=== PATIENT | male | born 2005 | race African-American/Black ===

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

== ENCOUNTER 2024-02-13 18:06 | Emergency (ER) | payer BC, OTHER, SELFPAY ==
[2024-02-13 18:25] VITALS: BP 135/69; PULSE 68; RESP 18; TEMP 37.6; O2SAT 100
--- NOTE | 2024-02-13 18:53 | ED_ITS ---
HPI - Skin/Abscess/Foreign Bdy General Chief complaint: Skin/Abscess/Foreign Body <Mernaharleen Flores APRN - Last Filed: 02/19/24 12:44> Stated complaint: Right Underarm Bump <Mernaharleen Flores APRN - Last Filed: 02/19/24 12:44> Time Seen by Provider: 02/13/24 18:53 <Merna Flores APRN - Last Filed: 02/19/24 12:44> Source: patient, RN notes reviewed and old records reviewed <Mernaharleen Flores APRN - Last Filed: 02/19/24 12:44> Mode of arrival: ambulatory <Mernaharleen Flores APRN - Last Filed: 02/19/24 12:44> Limitations: no limitations <Mernaharleen Flores APRN - Last Filed: 02/19/24 12:44> History of Present Illness HPI narrative: patient presents with complaints of painful pustule to the right axilla. He reports that he has had similar symptoms in the past, but says this is much worse and is lasting much longer. He reports that it began as a small pustule about a week ago, but has gotten significantly bigger. He has been picking at the site. He reports that he knows that this made it worse. He reports some scant drainage. Denies any injury or trauma. Voices no other concerns or complaints at this time. He denies any fever, chills, sweats <Merna Flores APRN - Last Filed: 02/19/24 12:44> Related Data Allergies/Adverse reactions: Allergies Allergy/AdvReac Type Severity Reaction Status Date / Time No Known Allergies Allergy Verified 02/13/24 18:09 <Mernaharleen Flores APRN - Last Filed: 02/19/24 12:44> Review of Systems 2 Review of Systems: All systems reviewed & are unremarkable except as noted in HPI and below <Merna Flores APRN - Last Filed: 02/19/24 12:44> Constitutional: Constitutional: Reports no additional constitutional complaints <Merna Flores APRN - Last Filed: 02/19/24 12:44> ENT: Reports system reviewed and no additional complaints, except as documented <Merna Basilio Flores APRN - Last Filed: 02/19/24 12:44> Cardiovascular: Cardiovascular: Reports no additional cardiovascular complaints <Mernaharleen Flores APRN - Last Filed: 02/19/24 12:44> Respiratory: Respiratory: Reports no additional respiratory complaints < Mernaharleen Flores APRN - Last Filed: 02/19/24 12:44> Gastrointestinal: Gastrointestinal: Reports no additional gastrointestinal complaints <Mernaharleen Flores APRN - Last Filed: 02/19/24 12:44> Integumentary/Breasts: Skin/Breast: Reports system reviewed and no additional complaints, except as docu and Reports as per HPI <Merna Flores APRN - Last Filed: 02/19/24 12:44> PMF Family History Family History: Family History Other Family history non-contributory <Merna Flores APRN - Last Filed: 02/19/24 12:44> Comments At the time of my signature, I reviewed and agree with the nursing past medical, surgical, social, and family history. There is no relevant family history pertinent to the patient complaint. <Mernaharleen Flores APRN - Last Filed: 02/19/24 12:44> Exam 2 Const: General: cooperative, no acute distress, alert and awake <Merna Flores APRN - Last Filed: 02/19/24 12:44> Orientation/consciousness: oriented to person, oriented to place and oriented to time <Mernaharleen Flores APRN - Last Filed: 02/19/24 12:44> HENMT: Head: normal to inspection <Mernaharleen Flores APRN - Last Filed: 02/19/24 12:44> Resp: Effort & Inspection: normal respiratory effort and able to speak in complete sentences <Mernaharleen Flores APRN - Last Filed: 02/19/24 12:44> Auscultation: clear to auscultation bilaterally, no crackles, no rales, no rhonchi and no wheezes <Merna Richmond Alcdiana ALANNA Last Filed: 02/19/24 12:44> Cardio: Palpation: normal PMI <Merna Richmond AlcdianaALANNA Last Filed: 02/19/24 12:44> Rate: regular rate <Merna Richmond AlcfrankiALANNA mcintyre Last Filed: 02/19/24 12:44> Rhythm: regular rhythm <Merna Richmond AlcdianaALANNA Last Filed: 02/19/24 12:44> Heart sounds: S1 normal heart sound present and S2 normal heart sound present <Merna Richmond AlcfrankiALANNA mcintyre Last Filed: 02/19/24 12:44> Skin: Full body images: 1. 2.5 cm diameter abscess with small central opening <Merna Richmodn AlcdianaALANNA Last Filed: 02/19/24 12:44> Neuro: General: oriented to person, oriented to place and oriented to time <Merna Richmond AlcdianaALANNA Last Filed: 02/19/24 12:44> Cranial nerves: Yes CN's II-XII intact bilaterally <Merna Richmond AlcdianaALANNA Last Filed: 02/19/24 12:44> Psych: Appearance: grossly normal <Merna Richmond AlcdianaALANNA Last Filed: 02/19/24 12:44> Thought process: Normal thought process present <Merna Richmond AlcdianaALANNA Last Filed: 02/19/24 12:44> Insight: Good insight present (Psych) <Merna SoFreeman Flores ALANNA Last Filed: 02/19/24 12:44> Judgement: Good judgement present (Psych) <Merna Richmond AlcdianaALANNA Last Filed: 02/19/24 12:44> Course Course Level of Care: Express Care Visit <Merna Richmond MarkALANNA Last Filed: 02/19/24 12:44> Vital Signs Vital signs: Vital Signs Temperature 99.6 F 02/13/24 18:25 Pulse Rate 68 02/13/24 18:25 Respiratory Rate 18 02/13/24 18:25 Blood Pressure 135/69 02/13/24 18:25 Pulse Oximetry 100 02/13/24 18:25 Oxygen Delivery Room Air 02/13/24 18:25 Temperature 99.6 F 02/13/24 18:25 Pulse Rate 68 02/13/24 18:25 Respiratory Rate 18 02/13/24 18:25 Blood Pressure 135/69 02/13/24 18:25 Pulse Oximetry 100 02/13/24 18:25 Oxygen Delivery Room Air 02/13/24 18:25 Reviewed <Merna Flores APRN - Last Filed: 02/19/24 12:44> Vital Signs Temperature 99.6 F 02/13/24 18:25 Pulse Rate 68 02/13/24 18:25 Respiratory Rate 18 02/13/24 18:25 Blood Pressure 135/69 02/13/24 18:25 Pulse Oximetry 100 02/13/24 18:25 Oxygen Delivery Room Air 02/13/24 18:25 Temperature 99.6 F 02/13/24 18:25 Pulse Rate 68 02/13/24 18:25 Respiratory Rate 18 02/13/24 18:25 Blood Pressure 135/69 02/13/24 18:25 Pulse Oximetry 100 02/13/24 18:25 Oxygen Delivery Room Air 02/13/24 18:25 <Angela Alvarado BARREL CHARRER HELPER - Last Filed: 02/17/24 09:01> Procedures Abscess I/D upper extremity: Date of Incision: 02/13/24 <Menra Flores APRN - Last Filed: 02/19/24 12:44> Time of Incision: 19:00 <Merna Flores APRN - Last Filed: 02/19/24 12:44> Local Anesthetic: lidocaine 1% <Merna Flores APRN - Last Filed: 02/19/24 12:44> Amount of anesthesia used (mL): 8 <Merna Flores APRN - Last Filed: 02/19/24 12:44> Technique: incised with #11 blade <Merna Flores APRN - Last Filed: 02/19/24 12:44> Amount of fluid expressed (mL): 10 <Merna Flores APRN - Last Filed: 02/19/24 12:44> Irrigation: Yes <Merna Flores APRN - Last Filed: 02/19/24 12:44> Packing used?: none <Merna Flores APRN - Last Filed: 02/19/24 12:44> I&D Results: Pus and Blood <Merna Flores APRN - Last Filed: 02/19/24 12:44> Complications: pain <Merna Flores APRN - Last Filed: 02/19/24 12:44> Abcess I&D Additional Comments: Right axilla, culture obtained <Merna Flores APRN - Last Filed: 02/19/24 12:44> MDM - Skin/Abscess/Foreign Bdy MDM Narrative Medical decision making narrative: patient with abscess to right axilla, likely secondary to hidradenitis. Patient advised to follow with primary care provider. Emergency department for new or worse symptoms. Tolerated incision and drainage without difficulty. Discharge instructions reviewed with patient, as well as provided in writing per nursing staff. The instructions also include specific and strict return/GO TO THE ER as well as f/u information. All questions have been answered, and the patient deny any further questions with discharge and discharge plan. Some parts of this dictation were generated by voice recognition software and may contain typographical and/or grammatical inaccuracies. <Merna Flores APRN - Last Filed: 02/19/24 12:44> Differential Diagnosis Differential diagnosis: Likely abscess of skin or subcutaneous tissue, cellulitis and contact dermatitis <Merna Flores APRN - Last Filed: 02/19/24 12:44> Medical Records Attestation: I reviewed the patient's medical records. <Merna Flores APRN - Last Filed: 02/19/24 12:44> Lab Data Attestation: I reviewed the patient's lab results. <Merna Flores APRN - Last Filed: 02/19/24 12:44> Labs: Lab called about results. Positive for MRSA. Sent sensitivity report. Patient is on doxy which is susceptible. <Angela Alvarado APRN - Last Filed: 02/17/24 09:01> Discharge Plan Discharge Clinical Impression: Abscess <Merna Flores APRN - Last Filed: 02/19/24 12:44> Patient Disposition: Home, Self-Care <Merna Flores APRN - Last Filed: 02/19/24 12:44> Condition: Stable <Merna Flores APRN - Last Filed: 02/19/24 12:44> Instructions: Antibiotic Form, Abscess (ED) <Merna Flores APRN - Last Filed: 02/19/24 12:44> Additional Instructions: Take medication as prescribed. Follow with primary care provider. Emergency department for new or worse symptoms <Merna Flores APRN - Last Filed: 02/19/24 12:44> Patient Language: Polish <Merna Flores APRN - Last Filed: 02/19/24 12:44> Prescriptions: New doxycycline hyclate 100 mg tablet 100 mg PO BID Qty: 20 0RF naproxen [Naprosyn] 500 mg tablet 500 mg PO BID PRN (Reason: pain) Qty: 30 0RF <Merna Flores APRN - Last Filed: 02/19/24 12:44> Follow-up/Referrals: PHYSICIAN,ANNEALING OVEN OPERATOR [Primary Care Provider] - <Merna Flores APRN - Last Filed: 02/19/24 12:44> Stand Alone Forms: Work/School Release IP <Merna Flores APRN - Last Filed: 02/19/24 12:44> Time of Disposition: 19:22 <Merna Flores APRN - Last Filed: 02/19/24 12:44> 19:22 <Angela Alvarado APRN - Last Filed: 02/17/24 09:01>
[2024-02-13] MEDS: LIDOCAINE 1% LOCAL INJ 2 ML AMPUL 8 ML INFILTRATE (18:59)
== END 2024-02-13 19:25 | disposition home or self-care (01) ==
PROVIDERS: Emergency Provider Nurse Practitioner Family
DX: L02.411 Cutaneous abscess of right axilla (principal); B95.62 Methicillin resistant Staphylococcus aureus infection as the cause of diseases classified elsewhere
CPT/HCPCS: 10060; 87070; 87075; 87181; 87205; 99213; G0463; J2003

== ENCOUNTER 2025-02-11 16:10 | Emergency (ER) | payer BC, SELFPAY ==
--- NOTE | ~2025-02-11 | XR_ITS ---
EXAMINATION: XR shoulder LT min 2V, 02/11/2025 16:20 [facility]Y [facility] HISTORY: possible dislocation COMPARISON: No comparisons available. Findings: No acute fracture or malalignment. No significant degenerative changes. Soft tissues unremarkable. Impression: No acute fracture or malalignment. Reviewed, dictated and finalized at location P. WINDER Impression: No acute fracture or malalignment.
[2025-02-11 16:15] VITALS: BP 132/61; PULSE 65; RESP 18; TEMP 37; O2SAT 100
--- NOTE | 2025-02-11 18:12 | ED.UPPEXIN ---
HPI - Extremity Injury (Upper) General Chief Complaint: Extremity Injury, Upper Stated Complaint: I dislocated my shoulder' Time Seen by Provider: 02/11/25 17:33 Source: patient Mode of arrival: ambulatory Limitations: no limitations History of Present Illness HPI narrative: Patient is a 19-year-old male who presents the ED with report of left shoulder injury. Patient reports he was boxing 2 days ago when he felt his left shoulder dislocate. He notes history of multiple previous dislocations of his left shoulder. States he typically reduces this himself. States he is able to move his arm currently, but has certain positions where it will hurt. States it feels very unstable. Reported he had an episode of numbness falling down a few nights ago, but this has resolved. Denies any other injuries. Related Data Allergies Allergy/AdvReac Type Severity Reaction Status Date / Time No Known Allergies Allergy Verified 02/13/24 18:09 Review of Systems Review of Systems: All systems reviewed & are unremarkable except as noted in HPI. All systems reviewed & are unremarkable except as noted in HPI and below PMFSH Family History Family History Other Family history non-contributory Exam Narrative: GENERAL: Well appearing, well-nourished, non-toxic, in no acute distress. HEAD: Normocephalic, atraumatic. RESPIRATORY: Airway patent, respirations nonlabored. Clear to auscultation bilaterally, no rales, rhonchi, wheezing. CARDIOVASCULAR: Regular rate and rhythm without murmurs, rubs, or gallops. Radial pulses strong and easily palpable MUSCULOSKELETAL: Moves all extremities. No gross deformities. Slight limitation of flexion and abduction past 90? due to pain. Mild tenderness palpation over left posterior shoulder joint. Sensation intact throughout left lower extremity. Equal airplane mechanic apprentice strength bilaterally. SKIN: Warm, dry, normal color. NEURO: A&O X3. Speech clear. Cranial nerves II-XII grossly intact. Steady gait. No ataxic movements. PSYCHIATRIC: Appropriate mood and affect. Normal interaction. Course Vital Signs Vital signs: Vital Signs Temperature 98.6 F 02/11/25 16:15 Pulse Rate 65 02/11/25 16:15 Respiratory Rate 18 02/11/25 16:15 Blood Pressure 132/61 02/11/25 16:15 Pulse Oximetry 100 12/11/25 16:15 Oxygen Delivery Room Air 02/11/25 16:15 Temperature 98.6 F 02/11/25 16:15 Pulse Rate 65 02/11/25 16:15 Respiratory Rate 18 02/11/25 16:15 Blood Pressure 132/61 02/11/25 16:15 Pulse Oximetry 100 02/11/25 16:15 Oxygen Delivery Room Air 02/11/25 16:15 MDM MDM Narrative Medical decision making narrative: Patient?s injury is consistent with musculoskeletal etiology. No signs of neurologic or vascular compromise on physical examination. Compartments are soft without signs of compartment syndrome. XR of left shoulder negative for fracture/dislocation. Discussed imaging findings with patient. Discussed likelihood of ligament verses rotator cuff muscle injury/ instability related to repetitive dislocations. Patient placement in sling. Will refer to orthopedics for further evaluation. Advised to call office make appointment. Advised to limit range of motion of arm. Given strict return precautions. He is in agreement with plan. Discharged in stable condition. Differential Diagnosis Differential Diagnosis: Shoulder fracture, shoulder dislocation, shoulder strain, nerve injury Medical Records I have reviewed the following patient records and this information was taken into consideration when formulating the assessment and plan.: previous labs, previous ER visits, previous hospitalizations and previous clinic visits Imaging Data Attestation: I personally reviewed and interpreted this imaging study as follows: Radiologist's impression: ITS Impressions Shoulder X-Ray 02/11/25 16:27 Impression: No acute fracture or malalignment. Discharge Plan Discharge Clinical Impression: History of closed dislocation of shoulder Strain of left shoulder Qualifiers: Encounter type: initial encounter Qualified Code(s): S46.912A - Strain of unspecified muscle, fascia and tendon at shoulder and upper arm level, left arm, initial encounter Patient Disposition: Home Condition: Stable Instructions: Antibiotic Form, Shoulder Dislocation (ED), How to Use a Sling (ED), Shoulder Sprain (ED) Additional Instructions: Recommend wearing sling at all times to avoid further injury to your shoulder. Continue Tylenol, ibuprofen, ice to shoulder as needed. Follow-up with orthopedics for further evaluation. Call office to make appointment. Return to the ED if you experience worsening or severe pain, recurrent injury, persistent numbness of arm, or any other symptoms of concern. Patient Language: Indonesian Prescriptions: No Action doxycycline hyclate 100 mg tablet 100 mg PO BID Qty: 20 0RF naproxen [Naprosyn] 500 mg tablet 500 mg PO BID PRN (Reason: pain) Qty: 30 0RF Follow-up/Referrals: PHYSICIAN,FORMING MACHINE OPERATOR [Primary Care Provider, Internal Medicine] Álvaro Quiroga MD [Physician, Orthopedics] Time of Disposition: 18:14
== END 2025-02-11 18:41 | disposition home or self-care (01) ==
LOC: ANHED 18:25
PROVIDERS: Emergency Provider Physician Assistant
DX: S46.912A Strain of unspecified muscle, fascia and tendon at shoulder and upper arm level, left arm, initial encounter (principal); X50.3XXA Overexertion from repetitive movements, initial encounter; Y93.71 Activity, boxing
CPT/HCPCS: 73030; 99283; A4565